=== PATIENT | female | born 1990 | race Caucasian/White ===

== ENCOUNTER → 2016-09-23 | Outpatient (CLI) | payer OTHER ==
--- NOTE | 2016-09-23 15:40 | KCIC ---
Indication: Low back pain and radiculopathy. Multiplanar multisequence imaging of the lumbar spine was performed without contrast. No prior studies are available for comparison. Curvature and alignment of the lumbar spine is normal. The vertebral body heights are well-maintained. No compression fracture or geographic marrow lesion is seen. There is fairly normal height and hydration to the lumbar intervertebral discs. No focal disc protrusion, central canal or neural foraminal stenosis is seen. The conus is unremarkable at the L1 level. The paraspinous tissues are unremarkable. IMPRESSION: Unremarkable noncontrast MRI of the lumbar spine. Electronically signed by: Ruddy Chaparro MD (09/23/2016 3:37 PM) [id number]
== END | disposition home or self-care (01) ==
LOC: KCIC MRI 14:54
DX: M54.16 Radiculopathy, lumbar region (principal)
CPT/HCPCS: 72148

== ENCOUNTER 2021-01-21 18:59 | Emergency (ER) | payer BC, OTHER ==
[~2021-01-21] VITALS: Ht 160 cm; Wt 91.0 kg
--- NOTE | 2021-01-21 19:05 | PHYS DOC ---
General Adult EDM: Chief Complaint: CHEST PAIN HPI: HPI: Patient is a 30 year old female here with greater than 24 hours of diffuse precordial chest pain. The pain is located across her entire chest, right and left, as well as bilateral thorax and thoracic back. The pain is intermittent yesterday, but it has been constant all day today. The pain is worse with deep inspiration, moving, coughing, changes in position. She does report dyspnea. She denies cough or hemoptysis. She denies vomiting but reports mild nausea. She reports mid abdominal discomfort. She denies urinary symptoms. Denies constipation or diarrhea. She had a total hysterectomy in 2018. Denies vaginal discharge or bleeding. No history of prior bowel obstructions. She reports a history of protein C, which was diagnosed after multiple miscarriages. She is not currently taking anticoagulants. She denies any known previous history of DVT or PE. She denies any lower extremity swelling, she has chronic muscle aches, chronic lower extremity pain, which is unchanged today. No recent travel, surgery, hospitalization. No reported trauma or injury. She has not taken anything for the pain. Review of Systems: Review of Systems: Constitutional: Denies fever or chills. [] Eyes: Denies change in visual acuity. [] HENT: Denies nasal congestion or sore throat. [] Respiratory: Denies cough. Reports mild shortness of breath. Cardiovascular: Chest pain. Denies peripheral edema. GI: Mid abdominal pain, nausea. Denies vomiting or diarrhea or constipation : Denies Epifanio symptoms. Denies pelvic pain. Musculoskeletal: Reports diffuse back pain and myalgias and arthralgias, most of which is chronic and unchanged for her. Integument: Denies rash. [] Neurologic: Denies headache, focal weakness or sensory changes. [] Psychiatric: Anxiety as it pertains to current symptoms. [] Heart Score: C/O Chest Pain: Yes HEART Score for Chest Pain: HEART Score for Chest Pain Response (Comments) Value History Slighlty/Non-Suspicious 0 ECG Normal 0 Age < 45 0 Risk Factors 1 or 2 Risk Factors 1 Troponin < Normal Limit 0 Total 1 Risk Factors: Risk Factors: DM, Current or recent (<one month) smoker, HTN, HLP, family history of CAD, obesity. Risk Scores: Score 0 - 3: 2.5% MACE over next 6 weeks - Discharge Home Score 4 - 6: 20.3% MACE over next 6 weeks - Admit for Clinical Observation Score 7 - 10: 72.7% MACE over next 6 weeks - Early Invasive Strategies Physical Exam: PE: Constitutional: Well developed, well nourished, no acute distress, non-toxic appearance. [] HENT: Normocephalic, atraumatic Eyes: Sclera are clear and anicteric Neck: Normal range of motion, no tenderness, supple, no stridor. Trachea midline. No JVD. Cardiovascular:Heart rate regular rhythm, +2 radial and +2 posterior tibial pulses bilaterally Lungs & Thorax: Bilateral breath sounds clear to auscultation, no rales, rhonchi or wheezing. No stridor. No distress. Equal chest rise. Palpation of entire chest wall reproduces pain. No palpable deformity, step off or crepitus. Abdomen: Abdomen is obese, soft, non-distended, normal bowel sounds, mild epigastric and periumbilical tenderness, no guarding, no rebound tenderness, normal bowel sounds, no CVA tenderness, no palpable mass or organomegaly. No palpable pulsatile mass. No flank or abdominal ecchymoses. Skin: Warm, dry, no erythema, no rash. [] Back: No tenderness, no CVA tenderness. [] Extremities: No tenderness, no cyanosis, no clubbing, ROM intact, no edema. [] Neurologic: Alert and oriented X 3, normal motor function, normal sensory function, no focal deficits noted. [] Psychologic: Anxious, cooperative. [] EKG: EKG: EKG is interpreted at 1909 Rhythm is sinus Rate is 88 bpm [place] is normal No STEMI No acute ischemia Radiology/Procedures: Radiology/Procedures: IMAGING REPORT Signed PATIENT: PAKO DONNELLY ACCOUNT: [id number] : 1990 LOCATION: ER AGE: 30 SEX: F EXAM STATUS: PRE ER ORD. PHYSICIAN: REVA BARRIENTOS DO REASON: chest pain, protein C PROCEDURE: CT ANGIOGRAPHY CHEST CTA chest with contrast dated 01/21/2021. COMPARISON: None. Clinical data indication: Chest pain. TECHNIQUE: Contiguous axial imaging the chest performed following the intravenous administration of 100 cc Omnipaque 350. Study performed as dedicated PE protocol with thin cut coronal and sagittal MIPS reconstruction. One or more of the following individualized dose reduction techniques were utilized for this examination: 1. Automated exposure control 2. Adjustment of the mA and/or kV according to patient size 3. Use of iterative reconstruction technique FINDINGS: Contrast bolus is adequate. No evidence of central, lobar or segmental pulmonary embolus. Subsegmental branches are not well evaluated based on technique. Heart size is within normal limits. No pericardial effusion. No mediastinal, hilar or axillary lymphadenopathy. Thyroid gland is unremarkable. Central airways are patent. Lungs are clear. No consolidation or pleural effusion. No pneumothorax. There is a tiny subpleural nodule in the right middle lobe on image 80 that measures 3 mm, nonspecific. Images of the upper abdomen are unremarkable. Gallbladder surgically absent. Bone windows show no acute findings. IMPRESSION: 1. No evidence of central, lobar or segmental pulmonary embolus. 2. Clear lungs. Electronically signed by: Carlo Curran MD (01/21/2021 8:00 PM) [facility] DICTATED and SIGNED BY: CARLO CURRAN MD DATE: 01/21/21 0 IMAGING REPORT Signed PATIENT: PAKO DONNELLY ACCOUNT: [id number] : 1990 LOCATION: ER AGE: 30 SEX: F EXAM STATUS: PRE ER ORD. PHYSICIAN: REVA BARRIENTOS DO REASON: chest pain PROCEDURE: PORTABLE CHEST 1V EXAM: AP View of the chest DATE: 01/21/2021 7:52 PM INDICATION: Reason: chest pain / Spl. Instructions: / History: COMPARISON: No Prior FINDINGS: The heart is not enlarged. Mediastinal and hilar contours are normal. No focal parenchymal airspace opacity. No pleural effusion or pneumothorax. IMPRESSION: 1. No radiographic evidence for acute cardiopulmonary process. Electronically signed by: Joseluis Alex MD (01/21/2021 7:55 PM) [facility] DICTATED and SIGNED BY: JOSELUIS ALEX MD DATE: 01/21/[id number] 0 Course & Med Decision Making: Course & Med Decision Making Pertinent Labs and Imaging studies reviewed. (See chart for details) The patient is given IV Toradol. She is resting comfortably. Vital signs are stable. Emergency department work-up is unremarkable for any acute life- threatening process. She has had pain for over 24 hours. Troponin is negative. No PE or acute process noted on CT angiogram. No current indication for further invasive exams, imaging or admission at this time, based on current clinical presentation. I told her she may follow-up with outpatient cardiology should symptoms persist. I recommend contacting her PCP as well. She is comfortable with the plan for discharge home. Strict return precautions are given, she verbalizes understanding of these instructions. Jillian Disclaimer: Jillian Disclaimer: This electronic medical record was generated, in whole or in part, using a voice recognition dictation system. Departure Departure Impression: Primary Impression: Atypical chest pain Disposition: HOME / SELF CARE / HOMELESS Condition: STABLE Referrals: YAIMA BLUE (PCP) Patient Instructions: Chest Pain (Nonspecific) Additional Instructions: To the ER for more severe chest pain, shortness of breath, uncontrolled vomiting, dehydration, weakness, if you are acutely injured or sustained any trauma or for any other concerns. Use the medication as needed/as directed. Stay well-hydrated. If your symptoms persist, you may wish to pursue outpatient cardiology consultation, please discuss this with your primary care physician. Scripts Cyclobenzaprine Hcl (CYCLOBENZAPRINE HCL) 10 Mg Tablet 1 TAB PO BID for muscle spasm, #14 TAB Prov: REVA BARRIENTOS DO 01/21/21 REVA BARRIENTOS DO Jan 21, 2021 19:05
[2021-01-21 19:26] LABS: BASO # 0.1 x10^3/uL (0.0-0.2); BASO % 1 % (0-3); EOS # 0.2 x10^3/uL (0.0-0.7); EOS % 1 % (0-3); HEMATOCRIT 39.7 % (36.0-47.0); HEMOGLOBIN 13.1 g/dL (12.0-15.5); LYMPH # 3.2 x10^3/uL (1.0-4.8); LYMPH % 29 % (24-48); MEAN CORPUSCULAR HEMOGLOBIN 27 pg (25-35); MEAN CORPUSCULAR HGB CONC 33 g/dL (31-37); MEAN CORPUSCULAR VOLUME 82 fL (79-100); MONO # 1.1 x10^3/uL (0.0-1.1); MONO % 10 % (0-9); NEUT # 6.5 x10^3/uL (1.8-7.7); NEUT % 59 % (31-73); PLATELET COUNT 287 x10^3/uL (140-400); RED BLOOD COUNT 4.84 x10^6/uL (3.50-5.40); RED CELL DISTRIBUTION WIDTH 13.5 % (11.5-14.5)
[2021-01-21 19:38] LABS: CALCIUM 8.9 mg/dL (8.5-10.1); CREATININE 0.7 mg/dL (0.6-1.0); GFR 98.3; POTASSIUM 3.6 mmol/L (3.5-5.1)
[2021-01-21 19:45] LABS: ALBUMIN 3.6 g/dL (3.4-5.0); ALBUMIN/GLOBULIN RATIO 0.7 (1.0-1.7); MAGNESIUM 2.1 mg/dL (1.8-2.4); TOTAL BILIRUBIN 0.3 mg/dL (0.2-1.0); TOTAL PROTEIN 8.6 g/dL (6.4-8.2)
[2021-01-21 19:45] LABS: BILIRUBIN,URINE NEGATIVE (NEG); CLARITY,URINE CLEAR; COLOR,URINE YELLOW; NITRITE,URINE NEGATIVE (NEG); PROTEIN,URINE NEGATIVE (NEG-TRACE); UROBILINOGEN,URINE 0.2 mg/dL (0.2 mg/dL)
[2021-01-21] MEDS ORDERED: ONDANSETRON PF 4 MG/2 ML VIAL. IVP ONE (19:45)
[2021-01-21] MEDS ORDERED: KETOROLAC 15 MG/ML VIAL. IVP ONE (19:45)
[2021-01-21 19:51] LABS: BACTERIA,URINE FEW /HPF (0-FEW); RBC,URINE 0 /HPF (0-2)
--- NOTE | 2021-01-21 19:58 | RAD ---
EXAM: AP View of the chest DATE: 01/21/2021 7:52 PM INDICATION: Reason: chest pain / Spl. Instructions: / History: COMPARISON: No Prior FINDINGS: The heart is not enlarged. Mediastinal and hilar contours are normal. No focal parenchymal airspace opacity. No pleural effusion or pneumothorax. IMPRESSION: 1. No radiographic evidence for acute cardiopulmonary process. Electronically signed by: Joseluis Howard MD (01/21/2021 7:55 PM) [facility]
[2021-01-21] MEDS ORDERED: CONTRAST GIVEN. MC PRN (20:00)
[2021-01-21] MEDS ORDERED: IOHEXOL 350 MG/ML 100 ML VIAL. IV ONE (20:00)
--- NOTE | 2021-01-21 20:02 | RAD ---
CTA chest with contrast dated 01/21/2021. COMPARISON: None. Clinical data indication: Chest pain. TECHNIQUE: Contiguous axial imaging the chest performed following the intravenous administration of 100 cc Omnip aque 350. Study performed as dedicated PE protocol with thin cut coronal and sagittal MIPS reconstruc tion. One or more of the following individualized dose reduction techniques were utilized for this examinat ion: 1. Automated exposure control 2. Adjustment of the mA and/or kV according to patient size 3. Use of iterative reconstruction technique FINDINGS: Contrast bolus is adequate. No evidence of central, lobar or segmental pulmonary embolus. Subsegmenta l branches are not well evaluated based on technique. Heart size is within normal limits. No pericardial effusion. No mediastinal, hilar or axillary lympha denopathy. Thyroid gland is unremarkable. Central airways are patent. Lungs are clear. No consolidation or pleural effusion. No pneumothorax. T here is a tiny subpleural nodule in the right middle lobe on image 80 that measures 3 mm, nonspecific . Images of the upper abdomen are unremarkable. Gallbladder surgically absent. Bone windows show no acute findings. IMPRESSION: 1. No evidence of central, lobar or segmental pulmonary embolus. 2. Clear lungs. Electronically signed by: Carlo Curran MD (01/21/2021 8:00 PM) [facility]
[2021-01-21 20:45] VITALS: BP 126/66
[2021-01-21] MEDS ORDERED: CYCL10TA19 PO (21:42)
--- NOTE | 2021-01-22 00:57 | EKG ---
[facility] [address] [place] [address] Test Date: 2021-01-21 Test Time: 19:07:59 Pat Name: PAKO DONNELLY Department: Room: Gender: F Mercerizer: : 1990 Requested By: REVA BARRIENTOS Order Number: [id number] Reading MD: Measurements Intervals [place] Rate: 88 P: 27 DC: 128 QRS: 56 QRSD: 84 T: -2 QT: 368 QTc: 449 Interpretive Statements SINUS RHYTHM NORMAL ECG RI6.02 No previous ECG available for comparison
== END 2021-01-21 21:50 | disposition home or self-care (01) ==
LOC: ER 18:59
DX: R07.2 Precordial pain (principal); R05.9 Cough, unspecified; R06.00 Dyspnea, unspecified; R10.13 Epigastric pain; M54.6 Pain in thoracic spine
CPT/HCPCS: 36415; 71045; 71275; 80053; 81001; 82550; 83690; 83735; 83880; 84484; 85025; 93005; 96374; 96375; 99285; J1885; J2405; Q9967